=== PATIENT | female | born 1985 | race Caucasian/White ===

== ENCOUNTER 2017-12-08 10:11 | Emergency (ER) | payer OTHER ==
[2017-12-08 11:06] LABS: Hematocrit 38 % (35-47); Hemoglobin 13.2 g/dl (12.0-16.0); Mean Corpuscular HGB Conc 35 g/dl (31-36); Mean Corpuscular Hemoglobin 30 pg (27-31); Mean Corpuscular Volume 87 fL (80-97); Mean Platelet Volume 9.1 um3 (7.4-10.4); Platelet Count 245 10^3/ul (150-450); Red Cell Distribution Width 13 % (10.5-15); White Blood Count 8.3 10^3/ul (3.5-10.8)
[2017-12-08] MEDS ORDERED: NS 0.9% 1000 ML* 1,000 ML IV ONE (12:05)
[2017-12-08] MEDS ORDERED: Ketorolac INJ* 30 MG/ML 1 ML VIAL IV PUSH ONE (12:05)
--- NOTE | 2017-12-08 12:45 | RAD ---
HISTORY: Bilateral flank pain COMPARISONS: None TECHNIQUE: Multiple transverse and longitudinal ultrasound images were obtained of the kidneys using grayscale and color Doppler imaging. FINDINGS: RIGHT KIDNEY: The right kidney is normal in shape, size, contour, and echogenicity. There is no hydronephrosis or nephrolithiasis. The right kidney measures 11.4 x 3.9 x 4.7 cm. LEFT KIDNEY: The left kidney is normal in shape, size, contour, and echogenicity. There is no hydronephrosis or nephrolithiasis. The left kidney measures 11.4 x 5.2 x 5 cm. BLADDER: No images are submitted of the bladder. AORTA AND IVC: No images are submitted of the vasculature. RETROPERITONEUM: Unremarkable. OTHER: None. IMPRESSION: NO HYDRONEPHROSIS OR NEPHROLITHIASIS.
[2017-12-08 12:58] LABS: Urine Appearance Clear; Urine Blood Negative (Negative); Urine Color Yellow; Urine Ketones Negative (Negative); Urine Protein Negative (Negative); Urine Specific Gravity 1.006 (1.010-1.030); Urine Urobilinogen Negative (Negative)
[2017-12-08] MEDS ORDERED: HYDROcodone/ACETAMIN 5-325 MG* 1 TAB PO ONE (13:21)
--- NOTE | 2017-12-08 14:12 | RAD ---
INDICATION: LEFT flank pain. Elevated inflammatory markers. COMPARISON: December 08, 2017 ultrasound. March 10, 2010 CT. TECHNIQUE: Multidetector CT images were obtained from the lung bases to the ischial tuberosities. Evaluation of the viscera is limited without IV contrast. Multiplanar reformation. REPORT: Minimal dependent atelectasis at the visualized lung bases. Unremarkable unenhanced liver, gallbladder, pancreas, spleen. Negative for CT abnormality of the upper GI, small bowel, retrocecal medially extending appendix, or colon. Negative for ascites, free air, hernias. Normal adrenal glands. Negative for urolithiasis or hydronephrosis. Negative for focal renal lesions or perirenal or perinephric inflammatory stranding. Phleboliths noted adjacent to the distal ureters. Unremarkable distended urinary bladder. Unremarkable anteverted uterus and adnexal regions. Negative for lymphadenopathy. Normal diameter abdominal aorta and iliac arteries. Physiologic distention of the IVC. Negative for suspicious osseous lesions. Negative for significant degenerative spondylosis or facet joint osteoarthritis. IMPRESSION: 1. Negative for urolithiasis or hydronephrosis. 2. Normal appendix documented. 3. No acute abdominal pelvic visceral process evident.
[2017-12-08 16:02] VITALS: BP 128/93
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
== END 2017-12-08 15:59 | disposition home or self-care (01) ==
LOC: ED 10:11
DX: M54.5 Low back pain (principal); Z87.891 Personal history of nicotine dependence
CPT/HCPCS: 36415; 74176; 76775; 80053; 81003; 81015; 84702; 85027; 86140; 87086; 96374; 99283; J1885

== ENCOUNTER 2019-06-14 12:54 | Emergency (ER) | payer OTHER ==
[2019-06-14 14:15] VITALS: BP 115/70
--- NOTE | 2019-06-14 15:10 | UC ---
Throat Pain/Nasal Tripp HPI - HPI Summary HPI Summary: 33 year old female presents with throat pain, fatigue, muscle aches starting ~ 1 days ago. + chills, denies fever. + multiple recent sick contacts. Throat feels swollen, no difficulty swallowing but full sensation. NO GI symptoms. - History of Current Complaint Chief Complaint: UCGeneralIllness Stated Complaint: SORE THROAT Time Seen by Provider: 06/14/19 14:44 Hx Obtained From: Patient Hx Last Menstrual Period: 06/07/19 ?: No Onset/Duration: Sudden Onset, Lasting Days Severity: Mild Pain Intensity: 0 Pain Scale Used: 0-10 Numeric Cough: None Associated Signs & Symptoms: Positive: Dysphagia, Hoarseness - Allergies/Home Medications Allergies/Adverse Reactions: Allergies Allergy/AdvReac Type Severity Reaction Status Date / Time azithromycin [From Zithromax] Allergy Rash Verified 06/14/19 14:07 erythromycin base Allergy Unknown Verified 06/14/19 14:07 Reaction Details codeine AdvReac Nausea Verified 06/14/19 14:07 Home Medications: Home Medications Topiramate [Topamax] 50 mg PO DAILY 06/14/19 [History Confirmed 06/14/19] PMH/Surg Hx/FS Hx/Imm Hx Previously Healthy: Yes - Surgical History Surgical History: Yes Surgery Procedure, Year, and Place: 05/2016 Rt CARPAL TUNNEL/ULNAR NERVE DECOMP; - Family History Known Family History: Positive: Hypertension, Non-Contributory - Social History Alcohol Use: None Substance Use Type: None Smoking Status (MU): Former Smoker Amount Used/How Often: 1 CIGARETTES A WEEK Review of Systems All Other Systems Reviewed And Are Negative: Yes Constitutional: Positive: Chills, Fatigue. Negative: Fever ENT: Positive: Sore Throat, Ear Ache - left sided Respiratory: Negative: Shortness Of Breath, Cough Neurological: Positive: Weakness. Negative: Headache, Paresthesia Psychological: Negative: Anxious Is Patient Immunocompromised?: No Physical Exam Triage Information Reviewed: Yes Appearance: No Pain Distress, Well-Nourished, Ill-Appearing Vital Signs: Initial Vital Signs Temp 98.1 F 06/14/19 14:09 Pulse 58 06/14/19 14:09 Resp 16 06/14/19 14:09 BP 115/70 06/14/19 14:09 Pulse Ox 100 06/14/19 14:09 Vital Signs Reviewed: Yes Eye Exam: Normal Eyes: Positive: Conjunctiva Clear ENT: Positive: Pharyngeal erythema, TMs normal, Tonsillar swelling - b/l exudates, Tonsillar exudate, Uvula midline. Negative: Nasal drainage, TM bulging, TM dull, TM red, Sinus tenderness Neck: Positive: Supple, No Lymphadenopathy, Tenderness @ - subman tenderness b/l Respiratory: Positive: Chest non-tender, Lungs clear, Normal breath sounds, No respiratory distress, No accessory muscle use. Negative: Respiratory distress, Crackles, Rhonchi, Stridor, Wheezing Cardiovascular: Positive: RRR, No Murmur Psychological Exam: Normal Skin Exam: Normal Throat Pain/Nasal Course/Dx - Course Course Of Treatment: rapid strep negative. Base on symptoms and examination, treatment for strep started: - Amoxicillin every 12 hours as directed x 7 days - Motrin/ Tylenol as needed for pain, muscle aches - Increase fluid intake - REturn or go to ER with difficulty swallowing, shortness of breath, fever > 102, - Differential Dx/Diagnosis Provider Diagnosis: Strep pharyngitis Discharge ED - Sign-Out/Discharge Documenting (check all that apply): Patient Departure All imaging exams completed and their final reports reviewed: No Studies - Discharge Plan Condition: Good Disposition: HOME Prescriptions: Amoxicillin PO (*) [Amoxicillin 875 MG (*)] 875 mg PO BID #14 tab Patient Education Materials: Strep Throat (ED) Referrals: No Primary Care Phys,NOPCP [Primary Care Provider] - [facility] [Outside] Additional Instructions: - Amoxicillin every 12 hours as directed x 7 days - Motrin/ Tylenol as needed for pain, muscle aches - Increase fluid intake - REturn or go to ER with difficulty swallowing, shortness of breath, fever > 102, - Billing Disposition and Condition Condition: GOOD Disposition: Home
== END 2019-06-14 15:30 | disposition home or self-care (01) ==
LOC: UCEAST 12:54
DX: J02.0 Streptococcal pharyngitis (principal); R49.0 Dysphonia; Z88.5 Allergy status to narcotic agent; Z88.1 Allergy status to other antibiotic agents; Z87.891 Personal history of nicotine dependence
CPT/HCPCS: 87651; 99212; G0463